=== PATIENT | male | born 1960 | race American Indian/Alaskan Native ===

== ENCOUNTER 2016-12-29 09:48 | Emergency (ER) | payer OTHER ==
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
== END 2016-12-29 13:28 ==
LOC: ED 09:48
DX: I46.9 Cardiac arrest, cause unspecified (principal); I10 Essential (primary) hypertension
CPT/HCPCS: 92950